=== PATIENT | male | born 1940 | race Caucasian/White ===

== ENCOUNTER 2017-12-14 12:14 | Observation (INO) | payer MEDICARE, BC, OTHER ==
[2017-12-14] MEDS ORDERED: NS 0.9% 1000 ML* 1,000 ML IV ONE ×2 (12:30→12:34)
[2017-12-14] MEDS ORDERED: PROCHLORPERAZINE INJ 5 MG/ML 2 ML VIAL ONE (12:40)
[2017-12-14 12:55] LABS: ABS Basophils 0 10^3/ul (0-0.2); ABS Eosinophils 0.1 10^3/ul (0-0.6); ABS Lymphocytes 0.7 10^3/ul (1.0-4.8); ABS Monocytes 0.5 10^3/ul (0-0.8); ABS Neutrophils 10.4 10^3/ul (1.5-7.7); ABS Nucleated RBC 0 10^3/ul; Eosinophil % 0.6 % (0-6); Hematocrit 42 % (42-52); Hemoglobin 13.9 g/dl (14.0-18.0); Lymphocyte % 5.9 % (25-47); Mean Corpuscular HGB Conc 33 g/dl (31-36); Mean Corpuscular Hemoglobin 29 pg (27-31); Mean Corpuscular Volume 87 fL (80-94); Mean Platelet Volume 7.3 um3 (7.4-10.4); Nucleated Red Blood Cells % 0; Platelet Count 225 10^3/ul (150-450); Red Blood Count 4.78 10^6/ul (4.0-5.4); Red Cell Distribution Width 16 % (10.5-15); White Blood Count 11.7 10^3/ul (3.5-10.8)
[2017-12-14 13:05] LABS: INR 1.01 (0.77-1.02)
--- NOTE | 2017-12-14 13:16 | RAD ---
HISTORY: Neurological changes COMPARISONS: July 30, 2016 TECHNIQUE: Multiple contiguous axial CT scans were obtained of the head without intravenous contrast. FINDINGS: HEMORRHAGE/INFARCT: There is no hemorrhage or acute infarct. MASSES/SHIFT: There is no mass or shift. EXTRA-AXIAL SPACES: There are no extra-axial fluid collections. SULCI AND VENTRICLES: The sulci and ventricles are normal in size and position for the patient's stated age. CEREBRUM: There are no focal parenchymal abnormalities. BRAINSTEM: There are no focal parenchymal abnormalities. CEREBELLUM: There are no focal parenchymal abnormalities. VESSELS: The vessels are grossly normal. PARANASAL SINUSES: The paranasal sinuses are clear. ORBITS: The orbits are unremarkable. BONES AND SOFT TISSUE: No bone or soft tissue abnormalities are noted. OTHER: None IMPRESSION: NO ACUTE INTRACRANIAL PATHOLOGY.
[2017-12-14] MEDS: PROCHLORPERAZINE INJ 5 MG/ML 2 ML VIAL IV PRN ×2 (13:17→19:32)
--- NOTE | 2017-12-14 13:20 | RAD ---
HISTORY: Neurological changes COMPARISONS: None VIEWS: 1: frontal portable view of the chest at 12:45 PM FINDINGS: LINES AND TUBES: None. CARDIOMEDIASTINAL SILHOUETTE: The cardiac silhouette is enlarged. The cardiomediastinal silhouette is otherwise normal for portable technique. PLEURA: The costophrenic angles are sharp. No pleural abnormalities are noted. LUNG PARENCHYMA: There is prominence of the central pulmonary vasculature. ABDOMEN: The upper abdomen is clear. There is no subphrenic gas. BONES AND SOFT TISSUES: No bone or soft tissue abnormalities are noted. IMPRESSION: CARDIOMEGALY WITH PULMONARY VASCULAR CONGESTION
[2017-12-14 14:17] LABS: Urine Appearance Clear; Urine Blood Negative (Negative); Urine Color Yellow; Urine Ketones Trace (Negative); Urine Protein 1+(30 mg/dL) (Negative); Urine Specific Gravity 1.015 (1.010-1.030); Urine Urobilinogen Negative (Negative)
[2017-12-14] MEDS ORDERED: Meclizine TAB* 12.5 MG PO ONE (14:41)
[2017-12-14] MEDS ORDERED: Iohexol 350* (CONTRAST) 500 ML MDV IV ONE (16:13)
[2017-12-14] MEDS ORDERED: Acetaminophen TAB* 325 MG PO PRN (16:25)
--- NOTE | 2017-12-14 17:30 | ED ---
Miley Dalton Elizabeth, scribed for Neo Patel MD on 12/14/17 at 1229 . Dizziness - HPI Summary HPI Summary: This patient is a 77 year old M presenting to [facility] with a chief complaint of dizziness since 10:30 this morning. The patient reports that the symptoms began while he was taking a shower. Symptoms aggravated by standing. Symptoms alleviated by lying down. Patient reports nausea and inability to stand up. Patient denies vision changes, changes in speech, headache. Patient has a previous hx of vertigo but notes that these symptoms are different than usual. - History Of Current Complaint Stated Complaint: NAUSEA Time Seen by Provider: 12/14/17 12:22 Hx Obtained From: Patient Onset/Duration: Still Present, Suddenly - 10:30 this morning Timing: Constant Severity Initially: Mild Severity Currently: Mild Character: Head Spinning, Dizzy Aggravating Factor(s): Supine To Erect Alleviating Factor(s): Lying Down Associated Signs And Symptoms: Positive: Nausea, Vomiting, Inability to Walk - Allergies/Home Medications Allergies/Adverse Reactions: Allergies Allergy/AdvReac Type Severity Reaction Status Date / Time Inhaled Anesthetics (Halogen AdvReac See Comment Verified 12/14/17 12:30 Based) Opioids - Morphine Analogues AdvReac See Comment Verified 12/14/17 12:30 Home Medications: Home Medications Glucosa Morgan 2Kcl/Chondroitin Morgan [Glucosamine & Chondroitin Cap] 1 cap PO DAILY [History Confirmed 12/14/17] Lisinopril/HCTZ 20/12.5(NF) [Zestoretic 20/12.5(NF)] 2 tab PO DAILY 12/14/17 [ History Confirmed 12/14/17] LoraTADine TAB(NF) [Claritin 10 MG TAB(NF)] 10 mg PO DAILY PRN 12/14/17 [ History Confirmed 12/14/17] Metoprolol Succinate XL TAB* [Toprol XL TAB*] 100 mg PO DAILY 12/14/17 [History Confirmed 12/14/17] Multivitamins/Minerals TAB* [Theragran/minerals TAB*] 1 tab PO DAILY 12/14/17 [ History Confirmed 12/14/17] White Owl-3 Fatty Acids (Nf) [Fish Oil (NF)] 1,000 mg PO DAILY 12/14/17 [History Confirmed 12/14/17] Ubidecarenone [Co Q-10] 30 mg PO DAILY 12/14/17 [History Confirmed 12/14/17] PMH/Surg Hx/FS Hx/Imm Hx Endocrine/Hematology History: Denies: Hx Diabetes Cardiovascular History: Reports: Hx Hypertension Denies: Hx Pacemaker/ICD History: Denies: Hx Renal Disease Sensory History: Denies: Hx Hearing Aid Psychiatric History: Denies: Hx Panic Disorder - Surgical History Surgery Procedure, Year, and Place: tonsils. EUA left knee - Family History Known Family History: Positive: Unknown - Social History Alcohol Use: None Substance Use Type: Reports: None Smoking Status (MU): Former Smoker Review of Systems Negative: Blurred Vision Positive: Vomiting, Nausea Neurological: Other - positive dizziness Negative: Headache, Slurred Speech All Other Systems Reviewed And Are Negative: Yes Physical Exam - Summary Physical Exam Summary: Appearance: The patient is well-nourished in no acute distress and in no acute pain. Skin: The skin is warm and dry and skin color reflects adequate perfusion. HEENT: The head is normocephalic and atraumatic. The pupils are equal and reactive. The conjunctivae are clear and without drainage. Nares are patent and without drainage. Mouth reveals moist mucous membranes and the throat is without erythema and exudate. The external ears are intact. The ear canals are patent and without drainage. The tympanic membranes are intact. No nystagmus. Neck: the neck is supple with full range of motion and non-tender. There are no carotid bruits. There is no neck vein distension. Respiratory: Chest is non-tender. Lungs are clear to auscultation and breath sounds are symmetrical and equal. Cardiovascular: Heart is regular rate and rhythm. There is no murmur or rub auscultated. There is no peripheral edema and pulses are symmetrical and equal. Abdomen: The abdomen is soft and non-tender. There are normal bowel sounds heard in all four quadrants and there is no organomegaly palpated. Musculoskeletal: There is no back tenderness noted. Extremities are non-tender with full range of motion. There is good capillary refill. There is no peripheral edema or calf tenderness elicited. Neurological: Patient is alert and oriented to person, place and time. The patient has symmetrical motor strength in all four extremities. Cranial nerves are grossly intact. Deep tendon reflexes are symmetrical and equal in all four extremities. NIH stroke scale is 0. Psychiatric: The patient has an appropriate affect and does not exhibit any anxiety or depression. Triage Information Reviewed: Yes Vital Signs On Initial Exam: Initial Vitals Temp Pulse Resp BP Pulse Ox 97 F 54 17 158/73 93 12/14/17 12:27 12/14/17 12:27 12/14/17 12:27 12/14/17 12:27 12/14/17 12:27 Vital Signs Reviewed: Yes Diagnostics - Vital Signs Vital Signs Temp Pulse Resp BP Pulse Ox 12/14/17 13:06 51 95 12/14/17 12:28 54 158/73 97 12/14/17 12:27 97 F 50 17 158/73 97 - Laboratory Lab Results: Lab Results 12/14/17 12/14/17 12/14/17 Range/Units 12:45 12:45 12:45 WBC 11.7 H (3.5-10.8) 10^3/ul RBC 4.78 (4.0-5.4) 10^6/ul Hgb 13.9 L (14.0-18.0) g/dl Hct 42 (42-52) % MCV 87 (80-94) fL MCH 29 (27-31) pg MCHC 33 (31-36) g/dl RDW 16 H (10.5-15) % Plt Count 225 (150-450) 10^3/ul MPV 7.3 L (7.4-10.4) um3 Neut % (Auto) 88.8 H (38-83) % Lymph % (Auto) 5.9 L (25-47) % [place] % (Auto) 4.3 (0-7) % Eos % (Auto) 0.6 (0-6) % Baso % (Auto) 0.4 (0-2) % Absolute Neuts (auto) 10.4 H (1.5-7.7) 10^3/ul Absolute Lymphs (auto) 0.7 L (1.0-4.8) 10^3/ul Absolute Monos (auto) 0.5 (0-0.8) 10^3/ul Absolute Eos (auto) 0.1 (0-0.6) 10^3/ul Absolute Basos (auto) 0 (0-0.2) 10^3/ul Absolute Nucleated RBC 0 10^3/ul Nucleated RBC % 0 INR (Anticoag Therapy) 1.01 (0.77-1.02) APTT 33.5 (26.0-36.3) seconds Sodium 140 (139-145) mmol/L Potassium 3.6 (3.5-5.0) mmol/L Chloride 105 (101-111) mmol/L Carbon Dioxide 26 (22-32) mmol/L Anion Gap 9 (2-11) mmol/L BUN 22 (6-24) mg/dL Creatinine 0.97 (0.67-1.17) mg/dL Est GFR ( Amer) 96.5 (>60) Est GFR (Non-Af Amer) 75.0 (>60) BUN/Creatinine Ratio 22.7 H (8-20) Glucose 132 H (70-100) mg/dL Lactic Acid (0.5-2.0) mmol/L Calcium 9.2 (8.6-10.3) mg/dL Total Bilirubin 0.40 (0.2-1.0) mg/dL AST 21 (13-39) U/L ALT 16 (7-52) U/L Alkaline Phosphatase 98 (34-104) U/L Troponin I 0.00 (<0.04) ng/mL Total Protein 6.5 (6.4-8.9) g/dL Albumin 3.9 (3.2-5.2) g/dL Globulin 2.6 (2-4) g/dL Albumin/Globulin Ratio 1.5 (1-3) Triglycerides 129 mg/dL Cholesterol 168 mg/dL LDL Cholesterol 110 mg/dL HDL Cholesterol 32.5 mg/dL Urine Color Urine Appearance Urine pH (5-9) Ur Specific Drury (1.010-1.030) Urine Protein (Negative) Urine Ketones (Negative) Urine Blood (Negative) Urine Nitrate (Negative) Urine Bilirubin (Negative) Urine Urobilinogen (Negative) Ur Leukocyte Esterase (Negative) Urine WBC (Auto) (Absent) Urine RBC (Auto) (Absent) Urine Bacteria (Absent) Urine Glucose (Negative) 12/14/17 12/14/17 Range/Units 12:45 14:05 WBC (3.5-10.8) 10^3/ul RBC (4.0-5.4) 10^6/ul Hgb (14.0-18.0) g/dl Hct (42-52) % MCV (80-94) fL MCH (27-31) pg MCHC (31-36) g/dl RDW (10.5-15) % Plt Count (150-450) 10^3/ul MPV (7.4-10.4) um3 Neut % (Auto) (38-83) % Lymph % (Auto) (25-47) % [place] % (Auto) (0-7) % Eos % (Auto) (0-6) % Baso % (Auto) (0-2) % Absolute Neuts (auto) (1.5-7.7) 10^3/ul Absolute Lymphs (auto) (1.0-4.8) 10^3/ul Absolute Monos (auto) (0-0.8) 10^3/ul Absolute Eos (auto) (0-0.6) 10^3/ul Absolute Basos (auto) (0-0.2) 10^3/ul Absolute Nucleated RBC 10^3/ul Nucleated RBC % INR (Anticoag Therapy) (0.77-1.02) APTT (26.0-36.3) seconds Sodium (139-145) mmol/L Potassium (3.5-5.0) mmol/L Chloride (101-111) mmol/L Carbon Dioxide (22-32) mmol/L Anion Gap (2-11) mmol/L BUN (6-24) mg/dL Creatinine (0.67-1.17) mg/dL Est GFR ( Amer) (>60) Est GFR (Non-Af Amer) (>60) BUN/Creatinine Ratio (8-20) Glucose (70-100) mg/dL Lactic Acid 1.4 (0.5-2.0) mmol/L Calcium (8.6-10.3) mg/dL Total Bilirubin (0.2-1.0) mg/dL AST (13-39) U/L ALT (7-52) U/L Alkaline Phosphatase (34-104) U/L Troponin I (<0.04) ng/mL Total Protein (6.4-8.9) g/dL Albumin (3.2-5.2) g/dL Globulin (2-4) g/dL Albumin/Globulin Ratio (1-3) Triglycerides mg/dL Cholesterol mg/dL LDL Cholesterol mg/dL HDL Cholesterol mg/dL Urine Color Yellow Urine Appearance Clear Urine pH 5.0 (5-9) Ur Specific Drury 1.015 (1.010-1.030) Urine Protein 1+(30 mg/dl) A (Negative) Urine Ketones Trace A (Negative) Urine Blood Negative (Negative) Urine Nitrate Negative (Negative) Urine Bilirubin Negative (Negative) Urine Urobilinogen Negative (Negative) Ur Leukocyte Esterase Trace A (Negative) Urine WBC (Auto) Trace(0-5/hpf) (Absent) Urine RBC (Auto) Trace(0-2/hpf) (Absent) Urine Bacteria Absent (Absent) Urine Glucose Negative (Negative) Result Diagrams: 12/14/17 12:45 12/14/17 12:45 Lab Statement: Any lab studies that have been ordered have been reviewed, and results considered in the medical decision making process. - Radiology CXR Xray Interpretation: Positive (See Comments) - IMPRESSION: CARDIOMEGALY WITH PULMONARY VASCULAR CONGESTION. Dr. Patel has reviewed this report. Radiology Interpretation Completed By: Radiologist - CT Brain CT CT Interpretation: No Acute Changes - IMPRESSION: NO ACUTE INTRACRANIAL PATHOLOGY. Dr. Patel has reviewed this report. CT Interpretation Completed By: Radiologist - EKG 12:39 Cardiac Rate: Bradycardia - at 52 BPM EKG Rhythm: Sinus Bradycardia Re-Evaluation - Re-Evaluation 1st re-eval Re-Evaluation Time: 14:35 Change: Improved Comment: Patient notes that his nausea has improved but his dizziness has not. Dizzy Course/Dx - Course Course Of Treatment: Mr. Lopez came in with a sudden feeling of being off balance and nauseated. It was worse when he was upright and better lying down. He had no perceived dysarthria when he spoke with his and he denied visual changes. An initial NIHSS was 0. I couldn't get him up to walk because of wretching so I gave him compazine while we got a W/U. I spoke with Dr. Rdz as I didn't think this was a Code Lane with the NIHSS of 0. After about an hour, his nausea was improved and I ordered meclizine. An hour later, he still hadn't gotten the medication so I ambulated him without it. He had a wide- based, very unsteady gait at that time. I asked the hospitalist service to admit him as he will need an MRI. I ordered a CTA to R/O a retrievable clot. - Diagnoses Provider Diagnoses: Ataxia, Vertigo - Provider Notifications Discussed Care Of Patient With: Delma Rdz Time Discussed With Above Provider: 12:35 Instructed by Provider To: Other - Dr. Rdz agreed that this was not a code boyd. - Critical Care Time Critical Care Time: 30-74 min Discharge - Sign-Out/Discharge Documenting (check all that apply): Discharge/Admit/Transfer - Discharge Plan Condition: Stable Disposition: ADMITTED TO [facility] Referrals: Maxi Faust DO [Primary Care Provider] - - Billing Disposition and Condition Condition: STABLE Disposition: [facility] The documentation as recorded by the Miley kaplan Elizabeth accurately reflects the service I personally performed and the decisions made by me, Neo Patel MD.
--- NOTE | 2017-12-14 17:38 | RAD ---
HISTORY: Ataxia COMPARISONS: Head CT dated December 14, 2012, CT dated July 30, 2016 TECHNIQUE: Multiple contiguous axial CT scans were obtained of the head and neck after the administration of nonionic intravenous contrast timed to the systemic arterial phase of contrast enhancement. Coronal and sagittal multiplanar reformations are submitted for review. Multiple 3-D maximum intensity projection reconstructions are also submitted for review. FINDINGS: Evaluation limited by suboptimal contrast opacification. CTA NECK: AORTIC ARCH: There is a normal three-vessel branching pattern of the aortic arch. There is no ostial or proximal stenosis of the cephalic great vessels. RIGHT VERTEBRAL ARTERY: The right vertebral artery is patent along its course, without stenosis. LEFT VERTEBRAL ARTERY: The left vertebral artery is patent along its course, without stenosis. DOMINANCE: The vertebral arteries are codominant. RIGHT COMMON CAROTID ARTERY: The right common carotid artery is patent. The right carotid bifurcation occurs at C3-C4 RIGHT INTERNAL CAROTID ARTERY: There is no right internal carotid artery stenosis by NASCET criteria. RIGHT EXTERNAL CAROTID ARTERY: The right external carotid artery is unremarkable. LEFT COMMON CAROTID ARTERY: The left common carotid artery is patent. The left carotid bifurcation occurs at C3-C4 LEFT INTERNAL CAROTID ARTERY: There is no left internal carotid artery stenosis by NASCET criteria. LEFT EXTERNAL CAROTID ARTERY: The left external carotid artery is unremarkable. VENOUS CIRCULATION: The venous system is unremarkable. SALIVARY GLANDS: The parotid glands, submandibular glands, sublingual glands are normal. NASAL CAVITY/NASOPHARYNX: The nasal cavity and nasopharynx are normal. ORAL CAVITY/OROPHARYNX: The oral cavity is obscured by streak artifact from dental amalgam. The visualized oral cavity and oropharynx are unremarkable. LARYNGEAL APPARATUS/HYPOPHARYNX: The laryngeal apparatus and hypopharynx are normal. UPPER AIRWAY/UPPER ESOPHAGUS: The visualized upper airway and esophagus are normal. LUNG APICES: The lung apices are clear. THYROID GLAND: The thyroid gland is normal. LYMPH NODES: There is no lymphadenopathy by size criteria. BONES AND SOFT TISSUES: Degenerative changes are noted of the spine. CTA HEAD: INTRACRANIAL CIRCULATION: There is no aneurysm, vascular malformation, occlusion, or stenosis of the visualized intracranial circulation. The vertebrobasilar system is tortuous this is similar to the previous examination.. The anterior communicating artery complex is clear. Bilateral posterior communicating arteries are identified. VENOUS CIRCULATION: The venous system is unremarkable. PERFUSION: There is no obvious parenchymal perfusion deficit. HEMORRHAGE/INFARCT: There is no hemorrhage or acute infarct. MASSES/SHIFT: There is no mass or shift. EXTRA-AXIAL SPACES: There are no extra-axial fluid collections. SULCI AND VENTRICLES: The sulci and ventricles are normal in size and position for the patient's stated age. CEREBRUM: There are no focal parenchymal abnormalities. BRAINSTEM: There are no focal parenchymal abnormalities. CEREBELLUM: There are no focal parenchymal abnormalities. PARANASAL SINUSES: The paranasal sinuses are clear. ORBITS: The orbits are unremarkable. BONES AND SOFT TISSUE: No bone or soft tissue abnormalities are noted. OTHER: There is no abnormal enhancement. IMPRESSION: 1. NO INTERNAL CAROTID ARTERY STENOSIS BY NASCET CRITERIA. 2. NO ANEURYSM, VASCULAR MALFORMATION, OCCLUSION, OR STENOSIS OF THE VISUALIZED INTRACRANIAL CIRCULATION. CPT II Codes: 3100F
[2017-12-14] MEDS: NS 0.9% 1000 ML* 1,000 ML IV SCH (18:22)
--- NOTE | 2017-12-14 20:17 | HP ---
CC: Dr. Maxi Faust; Dr. Molina; Dr. Mcfadden * HISTORY AND PHYSICAL: DATE OF ADMISSION: 12/14/17 TIME OF EVALUATION: 4 p.m. PRIMARY CARE PROVIDER: Dr. Maxi Faust. EMPLOYMENT SERVICES DIRECTOR: Dr. Molina. LEARNING SOLUTIONS SPECIALIST: Dr. Mcfadden. CHIEF COMPLAINT: "I am dizzy." HISTORY OF PRESENT ILLNESS: Mr. Lopez is a 77-year-old male with a past medical history of hereditary hemorrhagic telangiectasis, GI bleed, iron deficiency anemia, hypertension, who presented to the emergency room with complaints of dizziness. He states that 3 years ago, he had an episode of dizziness that he describes as the room spinning when he had his eyes opened associated with nausea and vomiting. He was treated with meclizine at that time with resolution of his symptoms. He states he woke up today in his usual state of health around 6:30 in the morning and around 10, he decided to take a shower. When he came out of the shower, he had this sudden onset of dizziness, but he states that this is different from what he had 3 years ago. This was not a spinning sensation, but a sensation that he was unsteady on his feet and bouncing on the garcia. He states that that was not a preferred side that he was falling to the right and to the left and needed to hold on to the garcia to be able to ambulate. This was followed by nausea and vomiting and he came to the emergency room for further evaluation. He denies headache, visual changes, any localized weakness , or change in sensation. There is no chest pain, palpitation, shortness of breath, or ear, nose, or throat symptoms. PAST MEDICAL HISTORY: 1. Hypertension. 2. 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 3. Hereditary hemorrhagic telangiectasis. MEDICATION LIST: 1. Chromium 200 mcg p.o. daily. 2. Cyanocobalamin 2500 mcg p.o. daily. 3. Folic acid 1 mg p.o. daily. 4. Glucosamine and chondroitin 1 capsule p.o. daily. 5. Lisinopril/hydrochlorothiazide 20/12.5 mg 2 tablets p.o. daily. 6. Loratadine 10 mg p.o. daily as needed for allergies. 7. Metoprolol succinate 100 mg p.o. daily. 8. Multivitamin 1 tablet p.o. daily. 9. Fish oil 1000 mg p.o. daily. 10. Potassium chloride 10 mEq p.o. daily. 11. CoQ10 30 mg p.o. daily. ALLERGIES: With OPIATES, the patient had delirium. FAMILY HISTORY: Mother had a history of congestive heart failure, hypertension , type 2 diabetes, hypothyroidism, hypercholesterolemia, and had a CVA at the age of 102. His father was a smoker, had a history of hypertension and pernicious anemia. Sister had a history of lung cancer and CVA. Brother also had a CVA. SOCIAL HISTORY: The patient is a former smoker. Denies alcohol use. Surrogate decision maker is his , Tasha Lopez; phone number is [phone]. REVIEW OF SYSTEMS: A 14-point review of systems was performed and all the pertinent negative and positive findings are in the HPI. PHYSICAL EXAMINATION GENERAL: The patient is a pleasant elderly male, sitting up in the ED stretcher in no acute distress. VITAL SIGNS: Temperature 97.3, heart rate is 68, respiratory rate 17, oxygen saturation is 95% on room air, blood pressure is 161/70. HEENT: Pupils are equal. Moist mucous membranes. There is no nystagmus. NECK: There is no cardiac bruit. CHEST: Breath sounds clear bilaterally. No added sounds. CVS: Normal S1, S2. Regular rate and rhythm. ABDOMEN: Soft. Bowel sounds are present. EXTREMITIES: No edema. NEURO: He is alert, awake, oriented x3. He is able to move all 4 extremities, but had an ataxic gait when he attempted to ambulate in the emergency room. He was able to stand up on the stretcher, but could not walk more than 2 or 3 steps. DIAGNOSTIC STUDIES/LAB DATA: The patient had a CBC that showed a WBC of 11.7, hemoglobin of 13.9, hematocrit of 42, platelets of 225 with 88% neutrophils. INR was 1.01 and aPTT is 33.5. Chemistry showed a sodium of 140, potassium of 3.6, chloride of 105, bicarb of 26, BUN of 22, creatinine of 0.97, glucose of 132, lactic acid of 1.4, calcium of 9.2. LFTs are normal. Troponin is 0. Nonfasting lipid profile shows triglycerides of 129, cholesterol of 168, LDL of 110, HDL of 32.5. CT of the brain showed no acute intracranial pathology. Chest x-ray showed cardiomegaly with pulmonary vascular congestion. EKG done on 12/23/17 at 1239 showed sinus bradycardia at 52 beats per minute. No significant ST-T changes. There are no prior EKGs to compare. ASSESSMENT AND PLAN: Mr. Lopez is a 77-year-old male with a past medical history of hereditary hemorrhagic telangiectasis, hypertension, iron deficiency anemia secondary to chronic gastrointestinal loss, vertigo, who presents to the emergency room with complaints of dizziness, found to have an ataxic gait. 1. Vertigo versus cerebrovascular accident. Although the patient describes his symptoms of dizziness, he is very clear that this is different from what he had 3 years ago. This is not a spinning sensation and he describes it as "bouncing around the garcia." In the emergency room, he was found to have an ataxic gait. The concern is that the etiology of his symptoms may be central. He is going to have a CTA of the head and neck and an MRI of the brain to pursue circulation cerebrovascular accident. He will be admitted to the telemetry floor. He will be monitored with neuro checks and a consultation was requested with Neurology (Dr. Rdz). We discussed that the patient has a history of chronic gastro-intestinal blood loss and requires IV infusions with Dr. Mcfadden. So, at this point, decision is not to start anticoagulation until we get his MRI report. 2. Hypertension. We will continue his lisinopril and metoprolol. 3. DVT prophylaxis. The patient has a score of 3 on the DVT Prophylaxis Risk Assessment Guide and we are going to avoid pharmacological prophylaxis due to his history of gastrointestinal bleed. He will have SCDs. 4. Code status is full. TIME SPENT: Approximately 50 minutes was spent with patient and son interview, medical records review, physical examination to complete this admission; more than half of this time was spent [id number] with patient in coordination of care. [id number]/[facility] #: [id number] CATHERINE
[2017-12-14] MEDS: Meclizine TAB* 12.5 MG PO SCH (20:18)
[2017-12-15] MEDS: NS 0.9% 1000 ML* 1,000 ML IV SCH (03:29)
[2017-12-15] MEDS: Meclizine TAB* 12.5 MG PO SCH ×2 (05:36→13:00)
--- NOTE | 2017-12-15 11:06 | RAD ---
HISTORY: Vertigo, ataxia, rule out stroke CT dated December 14, 2017 COMPARISONS: None TECHNIQUE: The following sequences were obtained of the head: Sagittal T1-weighted images, axial T2-weighted images, axial FLAIR images, axial susceptibility weighted images, axial T1-weighted images. Additionally, axial diffusion-weighted images were obtained with calculated apparent diffusion coefficients. FINDINGS: The study is limited by patient motion artifact. HEMORRHAGE/INFARCT: There is no hemorrhage or acute infarct. MASSES/SHIFT: There is no mass or shift. EXTRA-AXIAL SPACES/MENINGES: There are no extra-axial fluid collections. SULCI AND VENTRICLES: The sulci and ventricles are normal in size and position for the patient's stated age. CEREBRUM: There are no focal parenchymal abnormalities. BRAINSTEM: There are no focal parenchymal abnormalities. CEREBELLUM: There are no focal parenchymal abnormalities. The cerebellar tonsils are normal in size and position. SELLA: The sella is normal. PINEAL: The pineal region is clear. CP ANGLE/TEMPORAL BONES: The labyrinthine structures are grossly normal. VESSELS: Normal flow-voids are noted within the visualized vertebral vasculature. DIFFUSION ABNORMALITIES: There are no diffusion abnormalities. PARANASAL SINUSES/MASTOIDS: The paranasal sinuses are clear. ORBITS: The orbits are unremarkable. BONES AND SOFT TISSUE: No bone or soft tissue abnormalities are noted. OTHER: None IMPRESSION: UNREMARKABLE MRI OF THE BRAIN. THERE IS NO RESTRICTED DIFFUSION TO SUGGEST ACUTE INFARCT.
[2017-12-15 11:45] VITALS: BP 128/61
--- NOTE | 2017-12-15 15:30 | CONS ---
CC: Dr. Maxi Faust * NEUROLOGY CONSULTATION: DATE OF CONSULT: 12/15/17 REQUESTING PHYSICIAN: Dr. Lopez. PRIMARY CARE PHYSICIAN: Dr. Maxi Faust. REASON FOR CONSULT: Unsteady gait. 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 He reports about 5 hours after he woke up, he was in the shower and developed unsteadiness on his feet. This felt somewhat similar to his episode about 4 years ago except that the world was not moving around him in his vision as it had been back then. Otherwise, he says this episode feels about 80% similar. He needed to use the wall in order to walk and actually had to crawl out of his bathroom because of his unsteadiness. He also developed nausea and some vomiting. He denied any dysarthria, dysphagia, diplopia, extremity weakness or numbness. He had no vision changes. In the emergency department yesterday, he was noted to have gait unsteadiness and was admitted for a possible stroke workup. Today, he reports that he is about 95% better. He has been receiving meclizine 25 mg on a scheduled basis every 8 hours, last received this morning at 5:30. He also was receiving Compazine for nausea and last received that yesterday at 1932. Since he has been here, he has CT angiogram of the head and neck as well as MRI scan of the brain, which were both reviewed and detailed below. The patient notes that his symptoms of unsteadiness were worse when he extended his neck. PAST MEDICAL HISTORY: 1. Hypertension. 2. Iron-deficiency anemia secondary to chronic GI bleed. 3. Hereditary hemorrhagic telangiectasia. 4. Peripheral vertigo. HOME MEDICATIONS: 1. Chromium 200 mcg daily. 2. B12 2500 mcg daily. 3. Folic acid 1 mg daily. 4. Glucosamine/chondroitin. 5. Lisinopril/hydrochlorothiazide 20/12.5 mg 2 tablets daily. 6. Loratadine 10 mg as needed. 7. Metoprolol 100 mg daily. 8. Multivitamin daily. 9. Fish oil 1000 mg daily. 10. Potassium chloride 10 mEq daily. 11. CoQ10 30 mg daily. ALLERGIES: OPIATES cause delirium. FAMILY HISTORY: Mother lived to be 103. Father was a smoker and had hypertension and pernicious anemia. There are strokes in the family. He is not sure if anyone else had HHT in the family. SOCIAL HISTORY: He is a former smoker. No alcohol use. REVIEW OF SYSTEMS: As per the HPI, otherwise negative in 14 systems. PHYSICAL EXAM: Vital Signs: Temperature 99.6, blood pressure 128/61, heart rate 61, oxygen saturation 95% on room air. On general examination, he was ambulating back to his bed when I entered his room and appeared steady on his feet. He is pleasant, in no acute distress. Heart is in a regular rate and rhythm. Lungs were clear to auscultation. There are no carotid bruits. His skin is notable for multiple telangiectasias over his ears as well as his fingers bilaterally, his tongue and his lower lip. On neurologic exam, he is fully awake, alert, and oriented. Speech is fluent without dysarthria or aphasia. On cranial nerve testing, pupils are equal, round, and reactive from 3 to 2 mm bilaterally. Versions are full without nystagmus. Edwards are full to confrontation. Facial sensation and musculature is full and symmetric. Hearing is intact to finger rub. Palate elevates symmetrically and the tongue is midline. On motor examination, he has normal bulk and tone in the upper and lower extremities. Strength is full proximally and distally with no pronator drift. Sensation intact to light touch. Reflexes are 2+ throughout. Oaconm-bu-letr is intact without ataxia. Romberg is negative. He is able to rise onto his heels and toes. His gait is slightly wide based and upon turning in the clarke, someone brushed him as they were walking past and he stumbled towards the wall, but did not fall. He reports his gait is much improved compared to yesterday. DIAGNOSTIC STUDIES/LAB DATA: His CBC yesterday was notable for a white count of 11.7, hematocrit 42, platelet count 225, 88% neutrophils. Coagulation studies were normal. Chemistry panel was normal aside from a slightly elevated BUN to creatinine ratio of 22.7 and a glucose of 132, which was nonfasting. Cholesterol studies showed triglycerides 108, total cholesterol 154, LDL 100, HDL 32.6. Urinalysis was negative for infection. His brain CT showed no evidence of any acute intracranial abnormality. His head and neck CTA were personally reviewed and showed minimal atherosclerotic changes in the bilateral carotid arteries. The vertebrobasilar system is tortuous, but unchanged and there is no evidence of AVMs, occlusion, stenosis. It is essentially a normal study. His brain MRI was personally reviewed as well and is a normal study. There is no evidence of small vessel disease or any acute process. IMPRESSION AND PLAN: Leonel Lopez is a 77-year-old man with a history of hereditary hemorrhagic telangiectasia with chronic gastrointestinal bleed secondary to this condition, who presented with unsteadiness in his gait as well as nausea and vomiting. This episode felt similar to an episode of vertigo that he had 4 years ago except that he did not have any movement in his vision. He did not have other neurologic signs or symptoms suggestive of posterior circulation ischemia. His CTA and brain MRI are clean. His symptoms were worse with certain head positions and I think most likely this is a less severe exacerbation of peripheral vertigo than he had 4 years ago. I discussed with him that the meclizine may be suppressing symptoms right now and if symptoms return, he may benefit from repositioning maneuvers as an outpatient. His symptoms are not overly suggestive of transient ischemic attack to me and I would not suggest starting aspirin given his other medical comorbidities. Thank you for this consultation. [id number]/[facility] #: [id number] CATHERINE
--- NOTE | 2017-12-16 09:58 | DS ---
CC: Maxi Faust DO; Dr. Molina; Dr. Mcfadden * DISCHARGE SUMMARY: DATE OF ADMISSION: 12/14/17 DATE OF DISCHARGE: 12/15/17 PRIMARY CARE PROVIDER: Maxi Faust DO DISCHARGE DIAGNOSIS: Vertigo, likely peripheral that resolved. SECONDARY DIAGNOSES: 1. Hypertension. 2. 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 3. History of hereditary hemorrhagic telangiectasia. MEDICATIONS AT DISCHARGE: Include: 1. Antivert 25 mg p.o. 3 times a day p.r.n. vertigo. The remaining medications are unchanged and include: 1. Chromium 200 mcg daily. 2. Vitamin B12 1500 mcg daily. 3. Folic acid 1 mg daily. 4. Glucosamine and chondroitin 1 capsule daily. 5. Lisinopril/hydrochlorothiazide 20/12.5 mg 2 tablets p.o. daily. 6. Loratadine 10 mg as needed for allergies. 7. Metoprolol succinate 100 mg daily. 8. Multivitamin 1 tablet daily. 9. Fish oil 1000 mg daily. 10. Potassium chloride 10 mEq daily. 11. Coenzyme Q10 30 mg daily. LABORATORY DATA AND STUDIES PERFORMED DURING HOSPITAL STAY: Included: On 12/15, total cholesterol was 154, triglycerides were 108, LDL was 100, HDL was 32.6. Urinalysis was grossly unremarkable apart from trace esterase and trace ketones. CT angiogram of the head include, impression: No internal carotid artery stenosis by NASCET criteria. No aneurysm or vascular malformation, occlusion or stenosis of the visualized intracranial circulation. MRI of the brain obtained on 12/15/17, impression, "unremarkable MRI of the brain. There is no restricted diffusion to suggest acute infarcts." CONSULTATIONS DURING THE HOSPITAL STAY: Included Dr. Rdz from Neurology. HOSPITALIZATION COURSE: Leonel Lopez is a 77-year-old male who came in to the hospital complaining of dizziness. For further details of the patient's presentation, please see history and physical performed by Dr. Lopez. Shortly , the patient complained of dizziness/vertigo. He had a neuro workup including an MRI of the brain that showed no evidence of stroke. By the time of discharge , the patient's vertigo resolved. Dr. Rdz saw the patient in consultation and thought that the patient's vertigo is likely peripheral, either labyrinthitis or benign positional vertigo. The patient is going to be discharged home and was prescribed meclizine on a p.r.n. basis. PHYSICAL EXAM AT THE TIME OF DISCHARGE: Blood pressure 108/61, heart rate of 61 and regular, respiratory rate 20, oxygen saturation 95% on room air, temperature 99.6. General: The patient is a very pleasant 77-year-old male who is in no acute distress. Alert, awake, and oriented x3. HEENT: Head: Atraumatic, normocephalic. Eyes: Pupils are equal, reactive to light and accommodation. Oropharynx is clear. Mucosa moist. Neck: Supple. No JVD. No bruits bilaterally. Cardiovascular: Regularly rate and rhythm. No murmurs. Respiratory: Clear to auscultation bilaterally. Abdomen: Soft, nontender. Bowel sounds are present in all 4 quadrants. Extremities: There is no edema. Pulses are +2 bilaterally. No clubbing or cyanosis. Neuro Evaluation: Speech clear. Cranial nerves II through XII grossly intact. Motor strength is 5/5 bilaterally. FOLLOWUP: At discharge, the patient is recommended to follow up with primary care provider in approximately 4 to 7 days. Please note that this is a short summary of the patient's hospitalization. Please refer to further medical record for details. TIME SPENT: Approximately 35 minutes were spent on the patient's discharge. [id number]/[facility] #: [id number] CATHERINE
== END 2017-12-15 13:38 | disposition home or self-care (01) ==
LOC: ED 12:14 → MEDTELE 16:22
PROVIDERS: ADMIT Internal Medicine; ATTEND Internal Medicine
DX: R42 Dizziness and giddiness (principal); I10 Essential (primary) hypertension; D50.0 Iron deficiency anemia secondary to blood loss (chronic); I78.0 Hereditary hemorrhagic telangiectasia; R11.2 Nausea with vomiting, unspecified; R27.0 Ataxia, unspecified; I51.7 Cardiomegaly; Z87.891 Personal history of nicotine dependence
CPT/HCPCS: 36415; 70450; 70496; 70498; 70551; 71045; 80053; 80061; 81003; 81015; 83605; 84484; 85025; 85610; 85730; 87086; 93005; 96360; 96361; 99283; A9270-GY; G0378; J0780; Q9967

== ENCOUNTER 2018-06-03 09:10 | Day surgery (SDC) | payer MEDICARE, BC, OTHER ==
[~2018-06-03 09:10] MED LIST: Acetaminophen TAB* 325 MG PO PRN; Buffered Lidocaine 0.9% SYRIN* 5 ML/SYR SYRINGE INTRADERM ONE
[2018-06-03] MEDS ORDERED: Midazolam* 1 MG/ML 2 ML VIAL (2 MG) ONE (10:56)
[2018-06-03] MEDS ORDERED: Lidocaine 2% PF * 5 ML VIAL ONE (11:25)
[2018-06-03] MEDS ORDERED: Propofol* 10 MG/ML 20 ML BTL IV PUSH ONE (11:25)
[2018-06-03 11:50] VITALS: BP 99/51
[2018-06-03] MEDS ORDERED: Lidocaine 1%* 5 ML VIAL ONE (12:09)
[2018-06-03] MEDS ORDERED: Cyclopentolate 1% OPTH.SOL* 2 ML BTL ONE (12:09)
[2018-06-03] MEDS ORDERED: Proparacaine 0.5% OPHTH.SOL* 15 ML BTL ONE (12:09)
[2018-06-03] MEDS ORDERED: Phenylephrine 2.5% OPTH.SOL* 2 ML BTL ONE (12:09)
[2018-06-03] MEDS ORDERED: Povidone Iodine 5% OPTH* 30 ML BTL ONE (12:09)
[2018-06-03] MEDS ORDERED: Ketorolac 0.5% OPHTH (NF) 0.5 % 5 ML BTL ONE (12:09)
[2018-06-03] MEDS ORDERED: Neomycin/Polymy/Dex OPTH.SUSP* MAXITROL 0.1% 5 ML ONE (12:09)
[2018-06-03] MEDS ORDERED: Lidocaine 2% EPI 1:200000 MPF*10-20 ML VIAL ONE (12:09)
[2018-06-03] MEDS ORDERED: acetaZOLAMIDE TAB* 250 MG ONE (12:09)
--- NOTE | 2018-06-04 01:15 | OP ---
DATE OF OPERATION: 06/03/18 [facility] DATE OF : 40 SURGEON: Eros Enriquez M.D. PREOPERATIVE DIAGNOSIS: Cataract, right eye. POSTOPERATIVE DIAGNOSIS: Cataract, right eye. OPERATIVE PROCEDURE: Extracapsular cataract extraction with intraocular lens implant right eye. DESCRIPTION OF PROCEDURE: The patient was brought to the operating room after being given 1/2% Alcaine with epinephrine drops in the preoperative area. The eye was prepped and draped in the usual sterile fashion. Sterile drape and eyelid speculum were placed. Again, topical 1/2% Alcaine with epinephrine was given. A paracentesis incision was made at the 9 o'clock position with the No.75 blade. Clear cornea incision 2.2 x 2.2-mm was created at the 12 o'clock position starting at the anterior limbus using the 2.2-mm keratome. The anterior chamber was irrigated with 0.4 mL of 1% non-preservative intracameral lidocaine and filled with DisCoVisc. A capsulorrhexis was completed using the cystotome and the Utrata forceps. Hydrodissection was performed with balanced salt solution. The lens nucleus was removed with the Phacoemulsification handpiece without incident. Cortex was removed with the irrigation-aspiration handpiece. The capsular bag was re-inflated using DisCoVisc and an SN60WF 13.5 implant was inserted with the shooter. The irrigation-aspiration handpiece was used to remove all residual DisCoVisc. The eye was refilled with balanced salt solution and the wound checked and found to be watertight. Topical Maxitrol drops were given. [id number]/[facility] #: [id number] [facility]
== END 2018-06-03 12:02 | disposition home or self-care (01) ==
LOC: OREAST 09:10
PROVIDERS: ATTEND Specialist
DX: H25.811 Combined forms of age-related cataract, right eye (principal); H34.8312 Tributary (branch) retinal vein occlusion, right eye, stable; I10 Essential (primary) hypertension; D64.9 Anemia, unspecified; R42 Dizziness and giddiness
CPT/HCPCS: A9270-GY; J2250; J2704; V2632

== ENCOUNTER → 2018-06-10 06:58 | Day surgery (SDC) | payer MEDICARE, BC, OTHER ==
[~2018-06-10 06:58] MED LIST changes: +Cyclopentolate 1% OPTH.SOL* 2 ML BTL ONE; +Ketorolac 0.5% OPHTH (NF) 0.5 % 5 ML BTL ONE; +Lidocaine 1%* 5 ML VIAL ONE; +Lidocaine 2% EPI 1:200000 MPF*10-20 ML VIAL ONE; +Midazolam* 1 MG/ML 2 ML VIAL (2 MG) ONE; +Neomycin/Polymy/Dex OPTH.SUSP* MAXITROL 0.1% 5 ML ONE; +Phenylephrine 2.5% OPTH.SOL* 2 ML BTL ONE; +Povidone Iodine 5% OPTH* 30 ML BTL ONE; +Proparacaine 0.5% OPHTH.SOL* 15 ML BTL ONE; +acetaZOLAMIDE TAB* 250 MG ONE
[2018-06-10 08:53] VITALS: BP 113/52
--- NOTE | 2018-06-10 10:08 | OP ---
DATE OF OPERATION: 06/10/2018. DATE OF : 1940. SURGEON: Eros Enriquez M.D. PREOPERATIVE DIAGNOSIS: Cataract left eye. POSTOPERATIVE DIAGNOSIS: Cataract left eye. OPERATIVE PROCEDURE: Extracapsular cataract extraction with intraocular lens implant left eye. PROCEDURE: The patient was brought to the operating room after being given 1/2% Alcaine with epineph rine drops in the preoperative area. The eye was prepped and draped in the usual sterile fashion. S terile drape and eyelid speculum were placed. Again, topical 1/2% Alcaine with epinephrine was given . A paracentesis incision was made at the 3 o'clock position with the No.75 blade. Clear cornea inc ision 2.2 x 2.2-mm was created at the 6 o'clock position starting at the anterior limbus using the 2. 2-mm keratome. The anterior chamber was irrigated with 0.4 mL of 1% non-preservative intracameral li docaine and filled with DisCoVisc. A capsulorrhexis was completed using the cystotome and the Utrata forceps. Hydrodissection was performed with balanced salt solution. The lens nucleus was removed wi th the Phacoemulsification handpiece without incident. Cortex was removed with the irrigation-aspira tion handpiece. The capsular bag was re-inflated using DisCoVisc and an SN60WF 15.5 implant was inse rted with the shooter. The irrigation-aspiration handpiece was used to remove all residual DisCoVisc . The eye was refilled with balanced salt solution and the wound checked and found to be watertight. Topical Maxitrol drops were given. [id number]/[facility] #: [id number]
== END | disposition home or self-care (01) ==
LOC: OREAST 06:58
PROVIDERS: ATTEND Specialist
DX: H25.812 Combined forms of age-related cataract, left eye (principal); H34.8312 Tributary (branch) retinal vein occlusion, right eye, stable; I10 Essential (primary) hypertension; E78.5 Hyperlipidemia, unspecified; Z88.8 Allergy status to other drugs, medicaments and biological substances; Z96.1 Presence of intraocular lens
CPT/HCPCS: A9270-GY; J2250; V2632

== ENCOUNTER 2021-04-12 10:25 | Inpatient (IN) ==
[2021-04-12 11:37] LABS: Hematocrit 26 % (42-52); Mean Corpuscular HGB Conc 31 g/dL (31-36); Mean Corpuscular Hemoglobin 24 pg (27-31); Mean Corpuscular Volume 79 fL (80-94); Mean Platelet Volume 7.2 fL (7.4-10.4); Platelet Count 245 10^3/uL (150-450); Red Blood Count 3.31 10^6 /uL (4.18-5.48); Red Cell Distribution Width 27 % (10-15); White Blood Count 6.8 10^3/uL (3.5-10.8)
[2021-04-12 11:44] LABS: ABS Lymphocytes 0.4 10^3/ul (1.0-4.8); ABS Monocytes 0.4 10^3/ul (0-0.8); ABS Neutrophils 5.9 10^3/ul (1.5-7.7); Eosinophil % 0.3 %; Lymphocyte % 5.8 %
[2021-04-12] MEDS ORDERED: NS 0.9% 1000 ml BAG 1,000 ML IV ONE (12:14)
[2021-04-12 12:18] LABS: Albumin 3.6 g/dL (3.2-5.2); Albumin/Globulin Ratio 1.4 (1-3); C Reactive Protein 7.14 mg/L (<8.01); Calcium 9.1 mg/dL (8.6-10.3); EGFR African American 91.2 (>60); EGFR Non-African American 75.4 (>60); Globulin 2.5 g/dL (2-4); Potassium 4.6 mmol/L (3.5-5.0); Total Bilirubin 0.7 mg/dL (0.2-1.0); Total Protein 6.1 g/dL (6.4-8.9)
[2021-04-12 12:30] LABS: Anisocytosis 2+; Hypochromasia 1+; Polychromasia 1+
[2021-04-12 12:33] LABS: INR 1.37 (0.86-1.15)
[2021-04-12] MEDS ORDERED: fentaNYL 100 mcg/2 ml 50 MCG/ML VIAL ONE (13:46)
[2021-04-12] MEDS ORDERED: diPHENhydraMINE IV 50 MG/ML 1 ml VIAL (BENADRYL) ONE (13:46)
[2021-04-12] MEDS ORDERED: Midazolam 10 mg/10 ml VIAL 1 mg/ml 10 ml VIAL (10 mg) ONE (13:46)
[2021-04-12] MEDS ORDERED: Metoprolol Tartrate 5 mg VIAL 5 ml VIAL (1 mg/ml) IV ONE (15:51)
[2021-04-12] MEDS ORDERED: Pantoprazole VIAL 40 MG VIAL IV SCH (16:00)
[2021-04-12 16:26] LABS: Rapid COVID-19 Molecular Undetected (Undetected)
[2021-04-12 18:14] LABS: Hematocrit 24 % (42-52); Hemoglobin 7.4 g/dL (14.0-18.0)
[2021-04-12] MEDS ORDERED: D5W 1/2 NS 1000 ml BAG 1,000 ML IV SCH (19:00)
[2021-04-12] MEDS: Pantoprazole VIAL 40 MG VIAL IV SCH (20:39)
[2021-04-13 01:58] LABS: Hematocrit 24 % (42-52); Hemoglobin 7.2 g/dL (14.0-18.0)
[2021-04-13 05:43] LABS: Hematocrit 25 % (42-52); Hemoglobin 7.4 g/dL (14.0-18.0); Mean Corpuscular HGB Conc 30 g/dL (31-36); Mean Corpuscular Hemoglobin 24 pg (27-31); Mean Corpuscular Volume 80 fL (80-94); Mean Platelet Volume 6.9 fL (7.4-10.4); Platelet Count 210 10^3/uL (150-450); Red Blood Count 3.09 10^6 /uL (4.18-5.48); Red Cell Distribution Width 27 % (10-15); White Blood Count 5.6 10^3/uL (3.5-10.8)
[2021-04-13 05:46] LABS: ABS Eosinophils 0.1 10^3/ul (0-0.6); ABS Lymphocytes 0.6 10^3/ul (1.0-4.8); ABS Monocytes 0.4 10^3/ul (0-0.8); ABS Neutrophils 4.3 10^3/ul (1.5-7.7); Eosinophil % 1.8 %; Lymphocyte % 11.6 %; Nucleated Red Blood Cells % 0.1
[2021-04-13 05:48] LABS: INR 1.31 (0.86-1.15)
[2021-04-13 05:56] LABS: Blood Urea Nitrogen 31 mg/dL (6-24); CO2 Carbon Dioxide 26 mmol/L (22-32); Calcium 8.7 mg/dL (8.6-10.3); EGFR African American 104.9 (>60); EGFR Non-African American 86.7 (>60); Glucose 108 mg/dL (70-100); Potassium 3.7 mmol/L (3.5-5.0); Sodium 143 mmol/L (135-145)
[2021-04-13 06:04] LABS: Anion Gap 4 mmol/L (2-11); Chloride 113 mmol/L (101-111)
[2021-04-13] MEDS: Pantoprazole VIAL 40 MG VIAL IV SCH (07:58)
[2021-04-13] MEDS ORDERED: Iron Sucrose 200 MG in NS 0.9% 100 ml BAG 100 ML IVPB ONE (09:00)
[2021-04-13 09:16] LABS: Hematocrit 26 % (42-52); Hemoglobin 7.9 g/dL (14.0-18.0)
[2021-04-13 14:06] LABS: Digoxin 0.9 ng/ml (0.8-2.0); Total Iron Binding Capacity 311 mcg/dL (250-450); Transferrin 222 mg/dL (203-362)
[2021-04-13 14:08] LABS: % Iron Saturation 6 % (15-55); Iron < 20 ug/dL (50-212); Unsaturated Iron Binding < 296 ug/dL
[2021-04-13 14:26] LABS: Ferritin 38.7 ng/mL (24-336)
[2021-04-13 15:13] LABS: Hematocrit 24 % (42-52); Hemoglobin 7.6 g/dL (14.0-18.0)
[2021-04-13 16:03] VITALS: BP 121/64
== END 2021-04-13 18:00 | disposition home or self-care (01) | DRG 328 ==
LOC: ED 10:25 → SUATTDRO 13:49 → MEDTELE 13:49
PROVIDERS: ADMIT Internal Medicine; ATTEND Internal Medicine

== ENCOUNTER 2021-10-12 09:44 | Inpatient (IN) ==
[2021-10-12 10:05] LABS: ABS Eosinophils 0.1 10^3/ul (0-0.6); ABS Lymphocytes 0.4 10^3/ul (1.0-4.8); ABS Monocytes 0.5 10^3/ul (0-0.8); ABS Neutrophils 4.8 10^3/ul (1.5-7.7); Eosinophil % 1.1 %; Hematocrit 16 % (42-52); Hemoglobin 4.5 g/dL (14.0-18.0); Lymphocyte % 7.5 %; Mean Corpuscular HGB Conc 28 g/dL (31-36); Mean Corpuscular Hemoglobin 20 pg (27-31); Mean Corpuscular Volume 72 fL (80-94); Mean Platelet Volume 7.2 fL (7.4-10.4); Nucleated Red Blood Cells % 0.6; Platelet Count 209 10^3/uL (150-450); Red Blood Count 2.22 10^6 /uL (4.18-5.48); Red Cell Distribution Width 27 % (10-15); White Blood Count 5.9 10^3/uL (3.5-10.8)
[2021-10-12 10:12] LABS: Albumin 3.4 g/dL (3.2-5.2); CO2 Carbon Dioxide 22 mmol/L (22-32); Calcium 8.8 mg/dL (8.6-10.3); Potassium 4.4 mmol/L (3.5-5.0); Sodium 143 mmol/L (135-145)
[2021-10-12 10:13] LABS: Anion Gap 8 mmol/L (2-11); Chloride 113 mmol/L (101-111)
[2021-10-12 10:18] LABS: ALT 11 U/L (7-52); AST 15 U/L (13-39); Albumin/Globulin Ratio 1.6 (1-3); Alkaline Phosphatase 141 U/L (35-149); Blood Urea Nitrogen 29 mg/dL (6-24); Globulin 2.1 g/dL (2-4); Glucose 145 mg/dL (70-100); Total Iron Binding Capacity 386 mcg/dL (250-450); Total Protein 5.5 g/dL (6.4-8.9); Transferrin 276 mg/dL (203-362); eGFR CKD-EPI 55.7 (>60)
[2021-10-12 10:19] LABS: Hypochromasia 3+; Polychromasia 1+; Tear Drop Cells 1+
[2021-10-12 10:20] LABS: % Iron Saturation 5 % (15-55); Iron < 20 ug/dL (50-212); Microcytosis 1+; Unsaturated Iron Binding 366 ug/dL
[2021-10-12 11:12] LABS: Ferritin 6.4 ng/mL (24-336)
[2021-10-12] MEDS ORDERED: Ondansetron 4 mg VIAL 2 MG/ML 2 ml VIAL IV PRN (12:12)
[2021-10-12] MEDS: Pantoprazole VIAL 40 MG VIAL IV SCH (16:58)
[2021-10-12] MEDS ORDERED: Ferric Gluconate IV 125 MG in NS 0.9% 100 ml BAG 100 ML IVPB ONE (19:30)
[2021-10-12 20:59] LABS: Hematocrit 19 % (42-52); Hemoglobin 5.6 g/dL (14.0-18.0); Mean Corpuscular HGB Conc 29 g/dL (31-36); Mean Corpuscular Hemoglobin 22 pg (27-31); Mean Corpuscular Volume 74 fL (80-94); Mean Platelet Volume 7.8 fL (7.4-10.4); Platelet Count 172 10^3/uL (150-450); Red Blood Count 2.57 10^6 /uL (4.18-5.48); Red Cell Distribution Width 27 % (10-15); White Blood Count 4.4 10^3/uL (3.5-10.8)
[2021-10-13 01:24] LABS: ABS Eosinophils 0.1 10^3/ul (0-0.6); ABS Lymphocytes 0.4 10^3/ul (1.0-4.8); ABS Monocytes 0.5 10^3/ul (0-0.8); ABS Neutrophils 4.3 10^3/ul (1.5-7.7); Eosinophil % 1.5 %; Hematocrit 21 % (42-52); Hemoglobin 6.2 g/dL (14.0-18.0); Lymphocyte % 8.1 %; Mean Corpuscular HGB Conc 30 g/dL (31-36); Mean Corpuscular Hemoglobin 22 pg (27-31); Mean Corpuscular Volume 74 fL (80-94); Mean Platelet Volume 7.4 fL (7.4-10.4); Nucleated Red Blood Cells % 0.8; Platelet Count 176 10^3/uL (150-450); Red Cell Distribution Width 27 % (10-15); White Blood Count 5.3 10^3/uL (3.5-10.8)
[2021-10-13] MEDS: [UNRECOGNIZED DRUG - OTHER] PO SCH (08:44)
[2021-10-13] MEDS: Multivitamins/Minerals TAB PO SCH (08:45)
[2021-10-13 09:34] LABS: ABS Eosinophils 0.1 10^3/ul (0-0.6); ABS Lymphocytes 0.3 10^3/ul (1.0-4.8); ABS Monocytes 0.3 10^3/ul (0-0.8); ABS Neutrophils 4.2 10^3/ul (1.5-7.7); Eosinophil % 1.4 %; Hematocrit 20 % (42-52); Hemoglobin 6.2 g/dL (14.0-18.0); Lymphocyte % 6.8 %; Mean Corpuscular HGB Conc 31 g/dL (31-36); Mean Corpuscular Hemoglobin 22 pg (27-31); Mean Corpuscular Volume 73 fL (80-94); Mean Platelet Volume 7.5 fL (7.4-10.4); Nucleated Red Blood Cells % 0.8; Platelet Count 160 10^3/uL (150-450); Red Blood Count 2.75 10^6 /uL (4.18-5.48); Red Cell Distribution Width 27 % (10-15); White Blood Count 4.9 10^3/uL (3.5-10.8)
[2021-10-13] MEDS ORDERED: Midazolam 10 mg/10 ml VIAL 1 mg/ml 10 ml VIAL (10 mg) ONE (11:41)
[2021-10-13] MEDS ORDERED: fentaNYL 100 mcg/2 ml 50 MCG/ML VIAL ONE (11:41)
[2021-10-13] MEDS: Pantoprazole VIAL 40 MG VIAL IV SCH (15:55)
[2021-10-13] MEDS ORDERED: Ferric Gluconate IV 125 MG in NS 0.9% 100 ml BAG 100 ML IVPB ONE (17:00)
[2021-10-13 18:32] LABS: Hematocrit 23 % (42-52); Hemoglobin 7.2 g/dL (14.0-18.0)
[2021-10-13] MEDS: NS 0.9% 1000 ml BAG 1,000 ML IV SCH (20:45)
[2021-10-14 06:03] LABS: Hematocrit 23 % (42-52)
[2021-10-14] MEDS: NS 0.9% 1000 ml BAG 1,000 ML IV SCH (07:48)
[2021-10-14] MEDS: [UNRECOGNIZED DRUG - OTHER] PO SCH (09:25)
[2021-10-14] MEDS: Multivitamins/Minerals TAB PO SCH (09:25)
[2021-10-14 11:59] VITALS: BP 134/64
== END 2021-10-14 12:05 | disposition home or self-care (01) | DRG 299 ==
LOC: CHOA 09:44 → MEDTELE 13:12
PROVIDERS: ADMIT Internal Medicine Hematology & Oncology; ATTEND Internal Medicine Hematology & Oncology